=== PATIENT | male | born 1985 | race Caucasian/White ===

== ENCOUNTER → 2020-07-08 12:23 | Outpatient (CLI) | payer OTHER, MEDICAID, SELFPAY ==
[2020-07-08] MEDS: COVID-19 VACC #1, MRNA(MOD) 100 MCG/0.5 ML VIAL IM (12:32)
== END ==
PROVIDERS: Visit Provider Internal Medicine
DX: Z23 Encounter for immunization (principal)
CPT/HCPCS: 0011A; 91301

== ENCOUNTER → 2020-08-05 12:01 | Outpatient (CLI) | payer OTHER, MEDICAID, SELFPAY ==
[2020-08-05] MEDS: COVID-19 VACC #2, MRNA(MOD) 100 MCG/0.5 ML VIAL IM (12:18)
== END ==
PROVIDERS: Visit Provider Internal Medicine
DX: Z23 Encounter for immunization (principal)
CPT/HCPCS: 0012A; 91301